=== PATIENT | female | born 1980 | race Caucasian/White ===

== ENCOUNTER 2016-07-23 01:05 | Emergency (ER) | payer SELFPAY ==
[2016-07-23] MEDS ORDERED: Phenergan 25 MG INJ IV ONE (01:15)
[2016-07-23] MEDS ORDERED: Sodium Chloride 0.9% 1000 ML 1,000 ML IV STA (01:15)
--- NOTE | 2016-07-23 01:21 | ERPHSYRPT ---
- History of Present Illness Time Seen by Provider: 07/23/16 01:05 Source: patient Exam Limitations: no limitations Physician History: REPORTEDLY PT WAS FOUND LYING DOWN IN THE ROAD TONIGHT. PT C/O NECK PAIN, INCONTINENCE, SHORTNESS OF AIR AND VOMITING; DENIES CHEST PAIN, DIARRHEA, DYSURIA. Allergies/Adverse Reactions: coconut Allergy (Verified 07/23/16 01:29) - Review of Systems Constitutional: No Fever Respiratory: Dyspnea Cardiac: No Chest Pain Abdominal/Gastrointestinal: Vomiting, No Abdominal Pain Genitourinary Symptoms: Incontinence Musculoskeletal: Neck Pain Neurological: Other (ALTERED MENTAL STATUS) All Other Systems: Reviewed and Negative - Nursing Vital Signs Nursing Vital Signs: Initial Vital Signs Temperature 97 F Pulse Rate 92 Respiratory Rate 20 Blood Pressure [] 112/72 Pain Intensity 0 - Physical Exam General Appearance: alert Eye Exam: PERRL/EOMI, eyes nml inspection Ears, Nose, Throat Exam: moist mucous membranes, TM abnormal (L) (LEFT TM ERYTHEMATOUS), pharyngeal erythema Neck Exam: normal inspection Respiratory Exam: lungs clear Cardiovascular Exam: normal heart sounds Gastrointestinal/Abdomen Exam: soft, normal bowel sounds Back Exam: normal range of motion Extremity Exam: normal inspection, No pedal edema Neurologic Exam: alert, cooperative, sensation nml, No motor deficits Skin Exam: warm, dry - Course Nursing assessment & vital signs reviewed: Yes EKG Interpreted by Me: RATE (92), Sinus Rhythm, NORMAL AXIS, NORMAL INTERVALS - Radiology Exams Chest X-ray Interpretation: Interpreted by me, No Pneumonia - CT Exams Cervical Spine CT Interpretation: Tele-radiologist Report (NEGATIVE FOR FX OF THE CERVICAL SPINE. CERVICAL SPONDYLITIC CHANGES.) Ordered Tests: Active Orders 24 hr Category Date Time Status EKG-ER Only STAT Care 07/23/16 01:17 Active CERVICAL SPINE WO CONTRAST [CT] Stat Exams 07/23/16 02:03 Taken CHEST 1 VIEW (PORTABLE) Stat Exams 07/23/16 01:17 Taken ACETAMINOPHEN Stat Lab 07/23/16 01:30 Completed AMYLASE Stat Lab 07/23/16 01:30 Completed CBC W DIFF Stat Lab 07/23/16 01:30 Completed CMP Stat Lab 07/23/16 01:30 Completed Ethyl Alcohol,Urine Stat Lab 07/23/16 01:15 Completed HCG QUALITATIVE,SERUM Stat Lab 07/23/16 01:30 Completed LIPASE Stat Lab 07/23/16 01:30 Completed MAG [MAGNESIUM] Stat Lab 07/23/16 01:30 Completed SALICYLATE Stat Lab 07/23/16 01:30 Completed TROPONIN Stat Lab 07/23/16 01:30 Completed UA Stat Lab 07/23/16 01:15 Completed Urine Triage Profile Stat Lab 07/23/16 01:15 Completed VALPROIC ACID (DEPAKOTE) Stat Lab 07/23/16 01:30 Completed Medication Summary Generic Name Dose Route Start Last Admin Trade Name Florencio PRN Reason Stop Dose Admin Divalproex Sodium 500 mg 07/23/16 03:00 Depakote Extended Release 250 Mg PO 08/22/16 02:59 1XONLY ABDOUL Potassium Chloride 40 meq 07/23/16 10:00 Potassium Chl 40 Meq/30 Ml Oral Solution PO 08/22/16 09:59 DAILY ABDOUL Discontinued Medications Generic Name Dose Route Start Last Admin Trade Name Florencio PRN Reason Stop Dose Admin Sodium Chloride 1,000 mls @ 999 mls/hr 07/23/16 01:15 07/23/16 01:36 Sodium Chloride 0.9% 1000 Ml IV 07/23/16 02:15 999 mls/hr .Q1H1M STA Administration Sodium Chloride Confirm 07/23/16 01:30 Sodium Chloride 0.9% 1000 Ml Administered 07/23/16 01:31 Dose 1,000 mls @ ud .ROUTE .STK-MED ONE Promethazine HCl 12.5 mg 07/23/16 01:15 07/23/16 01:36 Phenergan 25 Mg Inj IV 07/23/16 01:16 12.5 mg STAT ONE Administration Promethazine HCl Confirm 07/23/16 01:30 Phenergan 25 Mg Inj Administered 07/23/16 01:31 Dose 25 mg .ROUTE .STK-MED ONE Lab/Rad Data: Laboratory Result Diagrams 07/23/16 01:30 07/23/16 01:30 Laboratory Results 07/23/16 07/23/16 07/23/16 Range/Units 01:30 01:30 01:30 WBC (4.0-10.5) K/mm3 RBC (4.1-5.4) M/mm3 Hgb (12.0-16.0) gm/dl Hct (35-47) % MCV (78-100) fl MCH (26-32) pg MCHC (32-36) g/dl RDW (11.5-14.0) % Plt Count (150-450) K/mm3 MPV (6-9.5) fl Gran % (36.0-66.0) % Lymphocytes % (24.0-44.0) % Monocytes % (0.0-12.0) % Eosinophils % (0.00-5.0) % Basophils % (0.0-0.4) % Basophils # (0-0.4) Sodium (136-145) mEq/L Potassium (3.5-5.1) mEq/L Chloride (98-107) mEq/L Carbon Dioxide (21-32) mEq/L Anion Gap (5-15) MEQ/L BUN (9-20) mg/dL Creatinine (0.55-1.30) mg/dl Estimated GFR ML/MIN Glucose (70-110) MG/DL Calcium (8.5-10.1) mg/dL Magnesium 2.0 (1.8-2.4) mg/dL Total Bilirubin (0.2-1.0) mg/dL AST (15-37) U/L ALT (12-78) U/L Alkaline Phosphatase (46-116) U/L Troponin I < 0.017 (0.000-0.056) ng/ml Serum Total Protein (6.4-8.2) gm/dL Albumin (3.4-5.0) g/dL Amylase 36 (25-115) U/L Lipase 110 (73-393) U/L Serum , Qual (Negative) Ur Collection Type Urine Color (YELLOW) Urine Appearance (CLEAR) Urine pH (5-6) Ur Specific [place] (1.005-1.025) Urine Protein (Negative) Urine Glucose (UA) (NEGATIVE) mg/dL Urine Ketones (NEGATIVE) Urine Nitrite (NEGATIVE) Urine Bilirubin (NEGATIVE) Urine Urobilinogen (0-1) mg/dL Urine WBC (Auto) (NEGATIVE) Urine RBC (Auto) (0-5) Geo/ul Salicylates (2.8-20.0) mg/dl Urine Opiates Level (NEGATIVE) Ur Methadone (NEGATIVE) Acetaminophen (10-30) ug/ml Urine Barbiturates (NEGATIVE) Valproic Acid 13.3 L (50-100) UG/ML Ur Phencyclidine (PCP) (NEGATIVE) Urine Amphetamine (NEGATIVE) U Benzodiazepine Level (NEGATIVE) Urine Cocaine (NEGATIVE) Urine Marijuana (THC) (NEGATIVE) Urine Ethyl Alcohol (0.00-20) mg/dl Specimen Received 07/23/16 07/23/16 07/23/16 Range/Units 01:30 01:30 01:30 WBC 9.9 (4.0-10.5) K/mm3 RBC 4.24 (4.1-5.4) M/mm3 Hgb 13.4 (12.0-16.0) gm/dl Hct 41.6 (35-47) % MCV 98.1 (78-100) fl MCH 31.6 (26-32) pg MCHC 32.2 (32-36) g/dl RDW 14.7 H (11.5-14.0) % Plt Count 302 (150-450) K/mm3 MPV 8.5 (6-9.5) fl Gran % 53.5 (36.0-66.0) % Lymphocytes % 35.9 (24.0-44.0) % Monocytes % 7.2 (0.0-12.0) % Eosinophils % 3.0 (0.00-5.0) % Basophils % 0.4 (0.0-0.4) % Basophils # 0.04 (0-0.4) Sodium 144 (136-145) mEq/L Potassium 3.4 L (3.5-5.1) mEq/L Chloride 110 H (98-107) mEq/L Carbon Dioxide 24.4 (21-32) mEq/L Anion Gap 12.9 (5-15) MEQ/L BUN 12 (9-20) mg/dL Creatinine 0.81 (0.55-1.30) mg/dl Estimated GFR > 60 ML/MIN Glucose 78 (70-110) MG/DL Calcium 8.2 L (8.5-10.1) mg/dL Magnesium (1.8-2.4) mg/dL Total Bilirubin 0.2 (0.2-1.0) mg/dL AST 18 (15-37) U/L ALT 13 (12-78) U/L Alkaline Phosphatase 68 (46-116) U/L Troponin I (0.000-0.056) ng/ml Serum Total Protein 6.8 (6.4-8.2) gm/dL Albumin 3.3 L (3.4-5.0) g/dL Amylase (25-115) U/L Lipase (73-393) U/L Serum , Qual NEGATIVE (Negative) Ur Collection Type Urine Color (YELLOW) Urine Appearance (CLEAR) Urine pH (5-6) Ur Specific [place] (1.005-1.025) Urine Protein (Negative) Urine Glucose (UA) (NEGATIVE) mg/dL Urine Ketones (NEGATIVE) Urine Nitrite (NEGATIVE) Urine Bilirubin (NEGATIVE) Urine Urobilinogen (0-1) mg/dL Urine WBC (Auto) (NEGATIVE) Urine RBC (Auto) (0-5) Geo/ul Salicylates 4.4 (2.8-20.0) mg/dl Urine Opiates Level (NEGATIVE) Ur Methadone (NEGATIVE) Acetaminophen < 2.0 L (10-30) ug/ml Urine Barbiturates (NEGATIVE) Valproic Acid (50-100) UG/ML Ur Phencyclidine (PCP) (NEGATIVE) Urine Amphetamine (NEGATIVE) U Benzodiazepine Level (NEGATIVE) Urine Cocaine (NEGATIVE) Urine Marijuana (THC) (NEGATIVE) Urine Ethyl Alcohol (0.00-20) mg/dl Specimen Received 07/23/16 07/23/16 07/23/16 Range/Units 01:15 01:15 01:15 WBC (4.0-10.5) K/mm3 RBC (4.1-5.4) M/mm3 Hgb (12.0-16.0) gm/dl Hct (35-47) % MCV (78-100) fl MCH (26-32) pg MCHC (32-36) g/dl RDW (11.5-14.0) % Plt Count (150-450) K/mm3 MPV (6-9.5) fl Gran % (36.0-66.0) % Lymphocytes % (24.0-44.0) % Monocytes % (0.0-12.0) % Eosinophils % (0.00-5.0) % Basophils % (0.0-0.4) % Basophils # (0-0.4) Sodium (136-145) mEq/L Potassium (3.5-5.1) mEq/L Chloride (98-107) mEq/L Carbon Dioxide (21-32) mEq/L Anion Gap (5-15) MEQ/L BUN (9-20) mg/dL Creatinine (0.55-1.30) mg/dl Estimated GFR ML/MIN Glucose (70-110) MG/DL Calcium (8.5-10.1) mg/dL Magnesium (1.8-2.4) mg/dL Total Bilirubin (0.2-1.0) mg/dL AST (15-37) U/L ALT (12-78) U/L Alkaline Phosphatase (46-116) U/L Troponin I (0.000-0.056) ng/ml Serum Total Protein (6.4-8.2) gm/dL Albumin (3.4-5.0) g/dL Amylase (25-115) U/L Lipase (73-393) U/L Serum , Qual (Negative) Ur Collection Type CLEAN CATCH Urine Color LT.YELLOW (YELLOW) Urine Appearance CLEAR (CLEAR) Urine pH 5.5 5.5 (5-6) Ur Specific [place] <=1.005 (1.005-1.025) Urine Protein NEGATIVE (Negative) Urine Glucose (UA) NEGATIVE (NEGATIVE) mg/dL Urine Ketones NEGATIVE (NEGATIVE) Urine Nitrite NEGATIVE (NEGATIVE) Urine Bilirubin NEGATIVE (NEGATIVE) Urine Urobilinogen 0.2 (0-1) mg/dL Urine WBC (Auto) NEGATIVE (NEGATIVE) Urine RBC (Auto) NEGATIVE (0-5) Geo/ul Salicylates (2.8-20.0) mg/dl Urine Opiates Level NEG. (NEGATIVE) Ur Methadone NEG. (NEGATIVE) Acetaminophen (10-30) ug/ml Urine Barbiturates NEG. (NEGATIVE) Valproic Acid (50-100) UG/ML Ur Phencyclidine (PCP) NEG. (NEGATIVE) Urine Amphetamine NEG. (NEGATIVE) U Benzodiazepine Level NEG. (NEGATIVE) Urine Cocaine NEG. (NEGATIVE) Urine Marijuana (THC) NEG. (NEGATIVE) Urine Ethyl Alcohol 173 H (0.00-20) mg/dl Specimen Received 07/23/16:0115 - Departure Time of Disposition: 03:00 Departure Disposition: Home Clinical Impression: ALCOHOL INTOXICATION, HYPOKALEMIA, AMS, SEIZURE DISORDER Condition: Fair Critical Care Time: No Referrals: ISMAEL LIM III [Primary Care Provider] - Instructions: Alcohol Abuse and Alcoholism Additional Instructions: FOLLOW UP WITH PRIVATE DOCTOR TOMORROW. AVOID ALCOHOLIC BEVERAGES.
[2016-07-23] MEDS ORDERED: Phenergan 25 MG INJ ONE (01:30)
[2016-07-23] MEDS ORDERED: Sodium Chloride 0.9% 1000 ML 1,000 ML ONE (01:30)
[2016-07-23 01:32] LABS: BASOPHIL % 0.4 % (0.0-0.4); Granulocytes % 53.5 % (36.0-66.0); Lymphocytes % 35.9 % (24.0-44.0); Mean Cell Volume 98.1 fl (78-100); Mean Corpuscular Hemoglobin 31.6 pg (26-32); Mean Platelet Volume 8.5 fl (6-9.5); Monocytes % 7.2 % (0.0-12.0); Platelet Count 302 K/mm3 (150-450); Red Blood Count 4.24 M/mm3 (4.1-5.4); Red Cell Distribution Width 14.7 % (11.5-14.0); White Blood Count 9.9 K/mm3 (4.0-10.5)
[2016-07-23 01:45] LABS: COMPLETE URINE MICROSCOPIC? NO; Collection Type CLEAN CATCH; Ph 5.5 (5-6)
[2016-07-23 01:59] LABS: ALBUMIN 3.3 g/dL (3.4-5.0); ALKALINE PHOSPHATASE 68 U/L (46-116); ANION GAP 12.9 MEQ/L (5-15); BILIRUBIN,TOTAL 0.2 mg/dL (0.2-1.0); BLOOD UREA NITROGEN 12 mg/dL (9-20); CHLORIDE 110 mEq/L (98-107); Carbon Dioxide 24.4 mEq/L (21-32); Glucose 78 MG/DL (70-110); LIPASE 110 U/L (73-393); Potassium 3.4 mEq/L (3.5-5.1); SGOT/AST 18 U/L (15-37); SGPT/ALT 13 U/L (12-78); SODIUM 144 mEq/L (136-145); Total Protein 6.8 gm/dL (6.4-8.2)
[2016-07-23 02:00] LABS: ACETAMINOPHEN < 2.0 ug/ml (10-30); TROPONIN < 0.017 ng/ml (0.000-0.056)
[2016-07-23 02:36] VITALS: BP 112/72; PULSE 92; O2SAT 91
[2016-07-23] MEDS ORDERED: Depakote EXTENDED RELEASE 250 MG PO SCH (03:00)
[2016-07-23] MEDS ORDERED: POTASSIUM CHL 40 MEQ/30 ML ORAL SOLUTION ONE (03:11)
--- NOTE | 2016-07-23 09:44 | XRAY ---
Indication: Acute mental status change. Comparison: None Portable chest demonstrates subtle right base infiltrate versus atelectasis and left base fibrosis/scarring. Remaining heart and lungs normal. Bony thorax intact. Comment: Right base opacity not reported on preliminary interpretation by the ER clinician. I gave telephone report to Dr. Falcon in the ER at 0939 hrs on July 23, 2016.
--- NOTE | 2016-07-23 09:48 | XRAY ---
Indication: Neck pain. No known injury. Multiple contiguous axial images obtained through the cervical spine. Sagittal and coronal reformatted images obtained. Comparison: None Study minimally degraded by motion artifact. No acute fracture, suspicious bony lesions, or spinal canal stenosis. Minimal C5-T1 degenerative endplate spurring. Sagittal and coronal reformatted images demonstrates slight lordotic reversal, positional versus paraspinal muscular spasm. Disc spaces maintained. No acute compression fracture, subluxation, or jumped facet. Normal appearing craniocervical junction. Visualized noncontrasted soft tissues including base of the brain and lung apices are unremarkable. Mild mucosal thickening of the visualized right maxillary sinus. Impression: 1. Slight lordotic reversal, positional versus paraspinal spasm. Negative for acute fracture/subluxation. 2. Minimal C5-T1 degenerative changes. 3. Incidental right maxillary sinus disease. Comment: Preliminary interpretation was made by [facility]. No discrepancy. CT DI 137.35
[2016-07-23] MEDS ORDERED: POTASSIUM CHL 40 MEQ/30 ML ORAL SOLUTION PO SCH (10:00)
== END 2016-07-23 03:32 | disposition home or self-care (01) ==
LOC: ED 01:05
DX: F10.129 Alcohol abuse with intoxication, unspecified (principal); E87.6 Hypokalemia; R41.82 Altered mental status, unspecified; G40.909 Epilepsy, unspecified, not intractable, without status epilepticus
CPT/HCPCS: 36415; 71010; 72125; 80053; 80307; 80320; 80339; 81002; 82150; 83690; 83735; 83986; 84484; 84703; 85025; 93005; 96360; 96374; 99284; G0481; J2550; A9270-GY

== ENCOUNTER 2016-09-21 18:27 | Emergency (ER) | payer OTHER ==
[2016-09-21] MEDS ORDERED: Hydromorphone 1 mg/ml Ampule IM ONE (19:24)
[2016-09-21] MEDS ORDERED: Phenergan 25 MG INJ IM ONE (19:25)
--- NOTE | 2016-09-21 19:31 | ERPHSYRPT ---
- History of Present Illness Time Seen by Provider: 09/21/16 19:25 Source: patient Exam Limitations: clinical condition Patient Subjective Stated Complaint: PT STATES SHE HAS GOUT IN BOTH FEET AND ARTHRITIS IN HER HIPS. STATES THE PAIN HAS BEEN CONSTANT FOR ONE WEEK BUT BECAME UNBEARABLE TODAY. Triage Nursing Assessment: PT IS AOX3, AMBULATORY TO COT WITH SLOW BUT STEADY GAIT, RESPS ARE EASY AND NON LABORED, SKIN IS PWD. PEDAL PULSES ARE PRESENT AND STRONG BILAT. 1+ PITTING EDEMA NOTED TO BILATERAL LOWER EXTREMITIES. Physician History: PATIENT WITH HISTORY OF BIPOLAR DISORDER,GOUTY AND OSTEOARTHRITIS FOR YEARS COMPLAINS OF PAIN IN BOTH FEET, ASSOCIATED WITH SWELLLING. ALSO HAS CHROINC HIP PAIN WORSE UPON WEIGTH BEARING. DENIES HISTORY OF TRAUMA OR INJURY. HAS INCREASING PAIN OVER THE PAST WEEK. Method of Injury: other (DENIES INJURY) Occurred: last week Quality: constant Severity of Pain-Max: moderate Severity of Pain-Current: moderate Lower Extremities Pain: foot: bilateral, ankle: bilateral Modifying Factors: Improves With: other (WEIGHT BEARING) Allergies/Adverse Reactions: coconut Allergy (Verified 07/23/16 01:29) NSAIDS (Non-Steroidal Anti-Inflamma Allergy (Verified 09/21/16 18:45) Home Medications: Alprazolam [Xanax] 1 tab PO BID 07/23/16 [History] Divalproex Sodium [Depakote ER] 2,000 mg PO HS 07/23/16 [History] Fluoxetine HCl [Prozac] 1 cap PO DAILY 07/23/16 [History] Prazosin HCl 2 mg PO HS 07/23/16 [History] Risperidone [Risperdal] 1 tab BID 07/23/16 [History] Hx Tetanus, Diphtheria Vaccination/Date Given: Yes Hx Influenza Vaccination/Date Given: No Hx Pneumococcal Vaccination/Date Given: No Immunizations Up to Date: Yes - Review of Systems Constitutional: No Fever, No Chills Eyes: No Symptoms Ears, Nose, & Throat: No Symptoms Respiratory: No Symptoms, No Cough, No Dyspnea Cardiac: No Symptoms, No Chest Pain, No Edema, No Syncope Abdominal/Gastrointestinal: No Symptoms, No Abdominal Pain, No Nausea, No Vomiting, No Diarrhea Genitourinary Symptoms: No Symptoms, No Dysuria Musculoskeletal: Joint Pain, Joint Swelling, No Back Pain, No Neck Pain Skin: No Rash Neurological: No Dizziness, No Focal Weakness, No Sensory Changes Psychological: No Symptoms Endocrine: No Symptoms All Other Systems: Reviewed and Negative - Past Medical History Pertinent Past Medical History: Yes Neurological History: Seizures Musculoskeletal History: Arthritis, Other Psycho-Social History: Anxiety, Bipolar, Depression, Other Other Medical History: GOUT, PTSD, SCHIZOAFFECTIVE, BORDERLINE PERSONALITY DISORDER ,DELUSIONS -has a couselor at [facility] - Past Surgical History Past Surgical History: Yes Musculoskeletal: Other Other Surgical History: REPAIR TO MENISCUS 2016 - Social History Smoking Status: Current every day smoker Exposure to second hand smoke: No Drug Use: none Patient Lives Alone: No - Female History Hx Last Menstrual Period: 09/14/16 - Nursing Vital Signs Nursing Vital Signs: Initial Vital Signs Temperature 98.2 F Temperature Source Oral Pulse Rate 86 Respiratory Rate 20 Blood Pressure [Right Arm] 102/61 Pain Intensity [Hip] 10 Pain Intensity 6 - Physical Exam General Appearance: alert Eyes, Ears, Nose, Throat Exam: moist mucous membranes Neck Exam: non-tender, supple Cardiovascular/Respiratory Exam: chest non-tender, normal breath sounds, regular rate/rhythm, no respiratory distress Gastrointestinal/Abdominal Exam: non-tender, guarding Back Exam: normal inspection, No vertebral tenderness Hips Exam: bilateral: normal range of motion (WITH PAIN RIGH HIP, NONTENDER RIGHT GREATER TROCHANTER) Legs Exam: bilateral leg: swelling (THERE IS 2+ PITTING ANKLES TO KNEES) Ankle Exam: bilateral ankle: normal range of motion, soft tissue tenderness, swelling (2+ EDEMA, NO JOINT LAXITY UPON VARUS/VALGUS STRESS), other (PEDIS PULSES 2+) Foot Exam: bilateral foot: pain, soft tissue tenderness, swelling (2+PITTING EDEMA) Neuro/Tendon Exam: normal sensation, normal motor functions Mental Status Exam: alert, oriented x 3, cooperative Skin Exam: normal color, warm, dry SpO2 Interpretation: normal SpO2: 94 Oxygen Delivery: Room Air Ordered Tests: Medication Summary Discontinued Medications Generic Name Dose Route Start Last Admin Trade Name Freq PRN Reason Stop Dose Admin Hydromorphone HCl 1 mg 09/21/16 19:24 09/21/16 19:41 Hydromorphone 1 Mg/Ml Ampule IM 09/21/16 19:25 1 mg STAT ONE Administration Hydromorphone HCl Confirm 09/21/16 19:36 Hydromorphone 1 Mg/Ml Ampule Administered 09/21/16 19:37 Dose 1 mg .ROUTE .STK-MED ONE Promethazine HCl 25 mg 09/21/16 19:25 09/21/16 19:41 Phenergan 25 Mg Inj IM 09/21/16 19:26 25 mg STAT ONE Administration Promethazine HCl Confirm 09/21/16 19:35 Phenergan 25 Mg Inj Administered 09/21/16 19:36 Dose 25 mg .ROUTE .STK-MED ONE - Progress Progress: pain not gone completely Progress Note: 09/21/16 19:40 PATIENT GIVEN DILAUDID 1MG/PHENERGAN 25MG IM Counseled pt/family regarding: diagnosis, need for follow-up - Departure Time of Disposition: 20:00 Departure Disposition: Home Clinical Impression: BILATERAL FEET GOUTY ARTHRITIS, BILATERAL LOWER EXTREMITY DEPENDENT PREETI Condition: Stable Critical Care Time: No Referrals: ISMAEL LIM III [Primary Care Provider] - Instructions: Chronic Pain -- Adult Additional Instructions: FOLLOWUP WITH A FAMILY PHYSICIAN IN 1 WEEK. TYLENOL #3 EVERY 4 HOURS FOR PAIN NEEDED. LASIX 40MG DAILY FOR 5 DAYS FOR TREATMENT OF LEG AND FOOT SWELLING. KLOR CON 20MEQ DAILY FOR 5 DAYS. WEIGH YOURSELF DAILY. Prescriptions: Codeine Phosphate/APAP #3 [Tylenol #3 Tablet] 1 tab PO Q4HPRN PRN #12 tablet PRN Reason: Pain Furosemide 40 mg [Lasix 40 MG] 40 mg PO DAILY #5 tablet Potassium Chloride 20 Meq [Klor-Con 20 MEQ] 20 meq PO DAILY #5 tab
[2016-09-21] MEDS ORDERED: Phenergan 25 MG INJ ONE (19:35)
[2016-09-21] MEDS ORDERED: Hydromorphone 1 mg/ml Ampule ONE (19:36)
[2016-09-21 20:21] VITALS: BP 109/72; PULSE 80; O2SAT 96
== END 2016-09-21 20:21 | disposition home or self-care (01) ==
LOC: ED 18:27
DX: M10.9 Gout, unspecified (principal); R60.0 Localized edema; M19.90 Unspecified osteoarthritis, unspecified site
CPT/HCPCS: 96372; 99284; J1170; J2550

== ENCOUNTER 2020-10-29 16:34 | Emergency (ER) | payer OTHER ==
--- NOTE | 2020-10-29 17:34 | ERPHSYRPT ---
- History of Present Illness Time Seen by Provider: 10/29/20 16:55 Source: patient Exam Limitations: no limitations Patient Subjective Stated Complaint: Pt broke her leg on Tuesday and went to [facility] and then went to [facility], pt continues to have severe pain and having high anxiety due to the pain Triage Nursing Assessment: Pt was brought to the ER by her girlfriend, rose marie amezcua, rates pain 10/10, wearing a walking boot from [employer], pulses normal, states that she hasn't gotten out of bed due to the pain and anxiety, goes to a pain clinic and they are to deal with her meds tomorrow, reports not going home with any pain medication Physician History: Is a 40-year-old female who reports that she fell Tuesday at the [facility] during her left leg. She was seen at [facility] had x-rays and was told there was no fracture. She then went to [facility] and had x-rays done which show the leg to be broken in 2 places and they are working on getting her a wheelchair. She mainly complains of anxiety we did obtain the records from [facility] and they do indeed indicate no fracture. We were unable to obtain the records from [facility]. Method of Injury: fell Occurred: days ago (4) Quality: constant, throbbing Severity of Pain-Max: severe Severity of Pain-Current: severe Lower Extremities Pain: leg: left (Leg is in a walking boot placed by [facility] she has not been removed from that boot.) Modifying Factors: Improves With: immobilization, movement Associated Symptoms: unable to bear weight Allergies/Adverse Reactions: coconut Allergy (Verified 10/29/20 16:52) NSAIDS (Non-Steroidal Anti-Inflamma Allergy (Verified 10/29/20 16:52) Home Medications: Prazosin HCl 2 mg PO HS 07/23/16 [History] Risperidone [Risperdal] 1 tab BID 07/23/16 [History] Buprenorphine HCl [Belbuca] 900 mcg BC Q12H 10/29/20 [History] Doxepin HCl 3 mg PO HS 10/29/20 [History] Hydrocodone/Acetaminophen [Hydrocodone-Acetamin 10-325 mg] 1 tablet PO Q6H PRN 10/29/20 [History] Lidocaine/Prilocaine [Lidocaine-Prilocaine Cream] 1 gm TOP DAILY 10/29/20 [History] Prazosin HCl 5 mg PO DAILY 10/29/20 [History] hydrOXYzine HCL [Hydroxyzine HCl] 10 mg PO TID 10/29/20 [History] Hx Tetanus, Diphtheria Vaccination/Date Given: Yes Hx Influenza Vaccination/Date Given: No Hx Pneumococcal Vaccination/Date Given: No Travel Risk - International Travel Have you traveled outside of the country in past 3 weeks: No - Coronavirus Screening Are you exhibiting any of the following symptoms?: No Close contact with a COVID-19 positive Pt in past 14-21 Days: No - Vaccine Status Have you recieved a Covid-19 vaccination: No - Review of Systems Constitutional: No Fever, No Chills Eyes: No Symptoms Ears, Nose, & Throat: No Symptoms Respiratory: No Cough, No Dyspnea Cardiac: No Chest Pain, No Edema, No Syncope Abdominal/Gastrointestinal: No Abdominal Pain, No Nausea, No Vomiting, No Diarrhea Genitourinary Symptoms: No Dysuria Musculoskeletal: Fall, No Back Pain, No Neck Pain Skin: No Rash Neurological: No Dizziness, No Focal Weakness, No Sensory Changes Psychological: No Symptoms Endocrine: No Symptoms All Other Systems: Reviewed and Negative - Past Medical History Pertinent Past Medical History: Yes Neurological History: Seizures Musculoskeletal History: Arthritis, Fractures, Other Psycho-Social History: Anxiety, Bipolar, Depression, Other Other Medical History: GOUT, PTSD, SCHIZOAFFECTIVE, BORDERLINE PERSONALITY DISORDER ,DELUSIONS -has a couselor at [facility] - Past Surgical History Past Surgical History: Yes Musculoskeletal: Other Other Surgical History: REPAIR TO [facility] 2016 - Social History Smoking Status: Current every day smoker Exposure to second hand smoke: Yes Drug Use: none Patient Lives Alone: Yes - Female History Hx Now: No - Nursing Vital Signs Nursing Vital Signs: Initial Vital Signs Temperature 97.2 F 10/29/20 16:45 Pulse Rate 80 10/29/20 16:45 Blood Pressure 138/78 10/29/20 16:45 O2 Sat by Pulse Oximetry 95 10/29/20 16:45 Pain Scale Pain Intensity 10 - Physical Exam General Appearance: mild distress, alert Eyes, Ears, Nose, Throat Exam: moist mucous membranes Neck Exam: non-tender, supple Cardiovascular/Respiratory Exam: chest non-tender, normal breath sounds, regular rate/rhythm, no respiratory distress Gastrointestinal/Abdominal Exam: non-tender, guarding Back Exam: normal inspection, No vertebral tenderness Hips Exam: bilateral: non-tender, normal inspection, normal range of motion Legs Exam: left leg: bone tenderness, limited range of motion, pain, swelling Neuro/Tendon Exam: normal sensation, normal motor functions Mental Status Exam: alert, oriented x 3, cooperative Skin Exam: normal color, warm, dry SpO2: 95 - Course Nursing assessment & vital signs reviewed: Yes - Progress Progress: unchanged - Departure Departure Disposition: Home Clinical Impression: Leg pain, left, Anxiety Condition: Stable Critical Care Time: No Referrals: DOCTOR,NO FAMILY [Primary Care Provider] - Instructions: Anxiety, Adult (DC) Prescriptions: Lorazepam 1 mg [Ativan 1 MG] 1 mg PO Q12H PRN 3 Days #6 tablet PRN Reason: Anxiety
[2020-10-29 18:35] VITALS: BP 103/81; PULSE 98; O2SAT 85
== END 2020-10-29 19:12 | disposition home or self-care (01) ==
LOC: ED 16:34
DX: M79.605 Pain in left leg (principal); W18.30XA Fall on same level, unspecified, initial encounter; Y93.89 Activity, other specified; Y92.828 Other wilderness area as the place of occurrence of the external cause; F41.9 Anxiety disorder, unspecified
CPT/HCPCS: 99283; U0003

== ENCOUNTER 2021-08-18 23:59 | Emergency (ER) | payer MEDICARE ==
--- NOTE | 2021-08-19 00:12 | ERPHSYRPT ---
- History of Present Illness Time Seen by Provider: 08/19/21 00:12 Source: patient, EMS Exam Limitations: clinical condition Physician History: This is an obese 41-year-old white female who has a history of seizure disorders and presents with 3 episodes of seizures today. She states these are stress- induced seizures and she has been very stressed recently. She did not hit her head or have any type of head injury. Patient states that her neurologist, Dr. Baldwin, is changing up her medications. This has been going on in the last week. She does not recall the name of the medication she is now taking. She is supposed to be taking Ativan twice a day and did not take her p.m. dose yet. Patient was brought into the emergency department by EMS service. Patient has a history of seizure disorder, anxiety, depression, arthritis, borderline personality disorder, bipolar disorder, schizoaffective disorder and PTSD. Patient did not soil herself. Patient does not have chest pain. She does not have shortness of breath. She has no abdominal pain. Timing/Duration: today Severity: moderate Character of Deficits: none Deficits: no difficulties Baseline/Normal Cognition: alert oriented x 3 Current Cognition: alert oriented x 3 Baseline Gait: walks w/o assistance Associated Symptoms: headache Allergies/Adverse Reactions: coconut Allergy (Verified 08/19/21 00:03) NSAIDS (Non-Steroidal Anti-Inflamma Allergy (Verified 08/19/21 00:03) Home Medications: Buprenorphine HCl [Belbuca] 900 mcg BC Q12H 10/29/20 [History] Doxepin HCl 1 tab PO HS 08/19/21 [History] Gabapentin [Neurontin] 1 tab PO BID 08/19/21 [History] Hydrocodone/Acetaminophen [Hydrocodone-Acetamin 10-325 mg] 1 tab PO Q4-6HPRN PRN 08/19/21 [History] Omeprazole 1 cap PO BID 08/19/21 [History] Prazosin HCl 1 cap PO DAILY 08/19/21 [History] Tiotropium [place] [Spiriva Respimat] 2 puff PO BID 08/19/21 [History] Topiramate 50 mg PO DAILY 08/19/21 [History] Topiramate 100 mg [Topamax 100 MG] 1 cap PO HS 08/19/21 [History] Hx Tetanus, Diphtheria Vaccination/Date Given: Yes Hx Influenza Vaccination/Date Given: No Hx Pneumococcal Vaccination/Date Given: No Travel Risk - International Travel Have you traveled outside of the country in past 3 weeks: No - Coronavirus Screening Are you exhibiting any of the following symptoms?: No Close contact with a COVID-19 positive Pt in past 14-21 Days: No - Vaccine Status Have you recieved a Covid-19 vaccination: No - Review of Systems Constitutional: No Symptoms Eyes: No Symptoms Ears, Nose, & Throat: No Symptoms Respiratory: No Symptoms Cardiac: No Symptoms Abdominal/Gastrointestinal: No Symptoms Genitourinary Symptoms: No Symptoms Musculoskeletal: No Symptoms Skin: No Symptoms Neurological: Headache, Seizure Psychological: No Symptoms Endocrine: No Symptoms Hematologic/Lymphatic: No Symptoms Immunological/Allergic: No Symptoms All Other Systems: Reviewed and Negative - Past Medical History Pertinent Past Medical History: Yes Neurological History: Seizures Musculoskeletal History: Arthritis, Fractures, Other Psycho-Social History: Anxiety, Bipolar, Depression, Other Other Medical History: GOUT, PTSD, SCHIZOAFFECTIVE, BORDERLINE PERSONALITY DISORDER ,DELUSIONS -has a couselor at [facility] - Past Surgical History Past Surgical History: Yes Musculoskeletal: Other Other Surgical History: REPAIR TO MENISCUS 2016 - Social History Smoking Status: Current every day smoker Exposure to second hand smoke: Yes Drug Use: none Patient Lives Alone: Yes - Nursing Vital Signs Nursing Vital Signs: Initial Vital Signs Pulse Rate 92 H 08/19/21 00:04 Respiratory Rate 20 08/19/21 00:04 Blood Pressure 115/69 08/19/21 00:04 O2 Sat by Pulse Oximetry 95 08/19/21 00:04 Pain Scale Pain Intensity 3 - [place] Coma Scale Best Eye Response ([place]): (4) open spontaneously Best Verbal Response ([place]): (5) oriented Best Motor Response (Trip): (6) obeys commands [place] Total: 15 - Physical Exam General Appearance: no apparent distress, alert, anxiety, obese Eye Exam: bilateral eye: normal inspection, PERRL, EOMI Ears, Nose, Throat Exam: normal ENT inspection, moist mucous membranes Neck Exam: normal inspection, non-tender, supple, full range of motion Respiratory: normal breath sounds, lungs clear, airway intact, No chest tenderness, No respiratory distress Cardiovascular: regular rate/rhythm, normal heart sounds, normal peripheral pulses Gastrointestinal: soft, normal bowel sounds, No tenderness Pelvic Exam: not done Rectal Exam: not done Back Exam: normal inspection, normal range of motion, No CVA tenderness, No vertebral tenderness Extremity Exam: normal inspection, normal range of motion, pelvis stable Mental Status: alert, oriented x 3, cooperative lawn care professional Exam: normal hearing, normal speech, PERRL, tongue midline Motor/Sensory: no motor deficit, no sensory deficit Skin Exam: normal color, warm, dry SpO2 Interpretation: normal O2 Delivery: Room Air - Course Nursing assessment & vital signs reviewed: Yes Ordered Tests: Active Orders 24 hr Category Date Time Status Clean Catch Urine Specimen STAT Care 08/19/21 00:14 Active IV Insertion STAT Care 08/19/21 00:14 Active Pulse Oximetry (ED) STAT Care 08/19/21 00:14 Active HEAD WITHOUT CONTRAST [CT] Stat Exams 08/19/21 00:14 Taken SHOULDER Stat Exams 08/19/21 00:00 Taken CBC W DIFF Stat Lab 08/19/21 00:28 Completed CMP Stat Lab 08/19/21 00:28 Completed UA W/RFX CULTURE Stat Lab 08/19/21 01:07 Completed Urine Triage Profile Stat Lab 08/19/21 01:00 Completed Medication Summary Discontinued Medications Generic Name Dose Route Start Last Admin Trade Name Freq PRN Reason Stop Dose Admin Lorazepam 1 mg 08/19/21 00:14 08/19/21 00:25 Lorazepam 2 Mg/1 Ml 2 Mg Vial IV 08/19/21 00:15 1 mg STAT ONE Administration Lorazepam Confirm 08/19/21 00:25 Lorazepam 2 Mg/1 Ml 2 Mg Vial Administered 08/19/21 00:26 Dose 2 mg .ROUTE .STK-MED ONE Ondansetron HCl 4 mg 08/19/21 01:00 08/19/21 01:01 Ondansetron Hcl 4 Mg/2 Ml Vial IV 08/19/21 01:01 4 mg STAT ONE Administration Ondansetron HCl Confirm 08/19/21 01:01 Ondansetron Hcl 4 Mg/2 Ml Vial Administered 08/19/21 01:02 Dose 4 mg .ROUTE .STK-MED ONE Lab/Rad Data: Laboratory Result Diagrams 08/19/21 00:28 08/19/21 00:28 Laboratory Results 08/19/21 08/19/21 08/19/21 Range/Units 01:07 01:00 00:28 WBC (4.0-10.5) x10^3/uL RBC (4.1-5.4) x10^6/uL Hgb (12.0-16.0) g/dL Hct (35-47) % MCV (78-100) fL MCH (26-32) pg MCHC (32-36) g/dL RDW (11.5-14.0) % Plt Count (150-450) x10^3/uL MPV (7.5-11.0) fL Gran % (36.0-66.0) % Immature Gran % (Auto) (0.00-0.1) % Nucleat RBC Rel Count (0.00-0.1) % Eos # (Auto) (0-0.5) x10^3/uL Immature Gran # (Auto) (0.00-0.01) x10^3u/L Absolute Lymphs (auto) (1.0-4.6) x10^3/uL Absolute Monos (auto) (0.0-1.3) x10^3/uL Absolute Nucleated RBC (0.00-0.01) x10^3u/L Lymphocytes % (24.0-44.0) % Monocytes % (0.0-12.0) % Eosinophils % (0.00-5.0) % Basophils % (0.0-0.4) % Absolute Granulocytes (1.4-6.9) x10^3/uL Basophils # (0-0.4) x10^3/uL Sodium 141 (137-145) mmol/L Potassium 4.6 (3.5-5.1) mmol/L Chloride 107 (98-107) mmol/L Carbon Dioxide 23 (22-30) mmol/L Anion Gap 16.1 H (5-15) MEQ/L BUN 7 (7-17) mg/dL Creatinine 0.54 (0.52-1.04) mg/dL Estimated GFR > 60.0 ML/MIN Glucose 101 (74-106) mg/dL Calcium 8.8 (8.4-10.2) mg/dL Total Bilirubin 0.80 (0.2-1.3) mg/dL AST 39 H (14-36) U/L ALT 15 (0-35) U/L Alkaline Phosphatase 65 (38-126) U/L Serum Total Protein 6.9 (6.3-8.2) g/dL Albumin 4.2 (3.5-5.0) g/dL Urinalys Dipstick Clnc MAIN LAB Urine Color YELLOW (YELLOW) Urine Appearance CLEAR (CLEAR) Urine pH 5.5 (5-6) Ur Specific [place] <=1.005 (1.005-1.025) POC Urine Protein Conf NEGATIVE (Negative) Urine Ketones NEGATIVE (NEGATIVE) Urine Nitrite NEGATIVE (NEGATIVE) Urine Bilirubin NEGATIVE (NEGATIVE) Urine Urobilinogen 0.2 (0-1) mg/dL Urine Leukocytes NEGATIVE (NEGATIVE) Urine WBC (Auto) NONE (0-5) /HPF Urine RBC (Auto) NONE (0-2) /HPF U Epithel Cells (Auto) RARE (FEW) /HPF Urine Bacteria (Auto) FEW (NEGATIVE) /HPF Urine RBC NEGATIVE (0-5) Geo/ul Ur Culture Indicated? NO Urine Glucose NEGATIVE (NEGATIVE) mg/dL Urine Opiates Level NEGATIVE (NEGATIVE) Ur Methadone NEGATIVE (NEGATIVE) Urine Barbiturates NEGATIVE (NEGATIVE) Ur Phencyclidine (PCP) NEGATIVE (NEGATIVE) Urine Amphetamine NEGATIVE (NEGATIVE) U Benzodiazepine Level NEGATIVE (NEGATIVE) Urine Cocaine NEGATIVE (NEGATIVE) Urine Marijuana (THC) NEGATIVE (NEGATIVE) 08/19/21 Range/Units 00:28 WBC 9.4 (4.0-10.5) x10^3/uL RBC 4.50 (4.1-5.4) x10^6/uL Hgb 14.7 (12.0-16.0) g/dL Hct 46.0 (35-47) % MCV 102.2 H (78-100) fL MCH 32.7 H (26-32) pg MCHC 32.0 (32-36) g/dL RDW 13.7 (11.5-14.0) % Plt Count 280 (150-450) x10^3/uL MPV 8.6 (7.5-11.0) fL Gran % 48.6 (36.0-66.0) % Immature Gran % (Auto) 0.4 H (0.00-0.1) % Nucleat RBC Rel Count 0.0 (0.00-0.1) % Eos # (Auto) 0.46 (0-0.5) x10^3/uL Immature Gran # (Auto) 0.04 H (0.00-0.01) x10^3u/L Absolute Lymphs (auto) 3.73 (1.0-4.6) x10^3/uL Absolute Monos (auto) 0.56 (0.0-1.3) x10^3/uL Absolute Nucleated RBC 0.00 (0.00-0.01) x10^3u/L Lymphocytes % 39.6 (24.0-44.0) % Monocytes % 5.9 (0.0-12.0) % Eosinophils % 4.9 (0.00-5.0) % Basophils % 0.6 (0.0-0.4) % Absolute Granulocytes 4.58 (1.4-6.9) x10^3/uL Basophils # 0.06 (0-0.4) x10^3/uL Sodium (137-145) mmol/L Potassium (3.5-5.1) mmol/L Chloride (98-107) mmol/L Carbon Dioxide (22-30) mmol/L Anion Gap (5-15) MEQ/L BUN (7-17) mg/dL Creatinine (0.52-1.04) mg/dL Estimated GFR ML/MIN Glucose (74-106) mg/dL Calcium (8.4-10.2) mg/dL Total Bilirubin (0.2-1.3) mg/dL AST (14-36) U/L ALT (0-35) U/L Alkaline Phosphatase (38-126) U/L Serum Total Protein (6.3-8.2) g/dL Albumin (3.5-5.0) g/dL Urinalys Dipstick Clnc Urine Color (YELLOW) Urine Appearance (CLEAR) Urine pH (5-6) Ur Specific [place] (1.005-1.025) POC Urine Protein Conf (Negative) Urine Ketones (NEGATIVE) Urine Nitrite (NEGATIVE) Urine Bilirubin (NEGATIVE) Urine Urobilinogen (0-1) mg/dL Urine Leukocytes (NEGATIVE) Urine WBC (Auto) (0-5) /HPF Urine RBC (Auto) (0-2) /HPF U Epithel Cells (Auto) (FEW) /HPF Urine Bacteria (Auto) (NEGATIVE) /HPF Urine RBC (0-5) Geo/ul Ur Culture Indicated? Urine Glucose (NEGATIVE) mg/dL Urine Opiates Level (NEGATIVE) Ur Methadone (NEGATIVE) Urine Barbiturates (NEGATIVE) Ur Phencyclidine (PCP) (NEGATIVE) Urine Amphetamine (NEGATIVE) U Benzodiazepine Level (NEGATIVE) Urine Cocaine (NEGATIVE) Urine Marijuana (THC) (NEGATIVE) - Progress Progress: improved Progress Note: 08/19/21 03:38 X-ray left shoulder shows no acute fracture or dislocation. Counseled pt/family regarding: lab results, diagnosis, need for follow-up, rad results - Departure Departure Disposition: Home Clinical Impression: Breakthrough seizure Condition: Stable Critical Care Time: No Referrals: DOCTOR,NO FAMILY [Primary Care Provider] - Follow up/PCP as directed Additional Instructions: Take all your medications as prescribed. Use Tylenol for pain control. Call your neurologist today to let them know that she had a breakthrough seizure.
[2021-08-19] MEDS: Ativan 2 MG/1 ML VIAL IV ONE (00:25)
[2021-08-19] MEDS ORDERED: Ativan 2 MG/1 ML VIAL ONE (00:25)
[2021-08-19 00:30] LABS: Absolute Neutrophil Ct (ANC) 4.58 x10^3/uL (1.4-6.9); Basophil (Absolute #) 0.06 x10^3/uL (0-0.4); Eosinophil % 4.9 % (0.00-5.0); Eosinophil (Absolute #) 0.46 x10^3/uL (0-0.5); Hemoglobin 14.7 g/dL (12.0-16.0); Lymphocyte (Absolute #) 3.73 x10^3/uL (1.0-4.6); Lymphocytes % 39.6 % (24.0-44.0); Mean Cell Volume 102.2 fL (78-100); Mean Corpuscular Hemoglobin 32.7 pg (26-32); Mean Platelet Volume 8.6 fL (7.5-11.0); Monocyte (Absolute #) 0.56 x10^3/uL (0.0-1.3); Monocytes % 5.9 % (0.0-12.0); Neutrophil % 48.6 % (36.0-66.0); Platelet Count 280 x10^3/uL (150-450); Red Cell Distribution Width 13.7 % (11.5-14.0); White Blood Count 9.4 x10^3/uL (4.0-10.5)
[2021-08-19 00:51] LABS: ALBUMIN 4.2 g/dL (3.5-5.0); ALKALINE PHOSPHATASE 65 U/L (38-126); ANION GAP 16.1 MEQ/L (5-15); BLOOD UREA NITROGEN 7 mg/dL (7-17); CHLORIDE 107 mmol/L (98-107); Calcium 8.8 mg/dL (8.4-10.2); Carbon Dioxide 23 mmol/L (22-30); Creatinine 1 0.54 mg/dL (0.52-1.04); EST GLOMERULAR FILTRATION RATE > 60.0 ML/MIN; Glucose 101 mg/dL (74-106); Potassium 4.6 mmol/L (3.5-5.1); SGOT/AST 39 U/L (14-36); SGPT/ALT 15 U/L (0-35); SODIUM 141 mmol/L (137-145); Total Protein 6.9 g/dL (6.3-8.2)
[2021-08-19] MEDS ORDERED: Zofran 4 MG/2 ML VIAL ONE (01:01)
[2021-08-19] MEDS: Zofran 4 MG/2 ML VIAL IV ONE (01:01)
[2021-08-19 01:14] LABS: Appearance CLEAR (CLEAR); Bacteria FEW /HPF (NEGATIVE); Bilirubin NEGATIVE (NEGATIVE); Epithelial Cells RARE /HPF (FEW); Glucose NEGATIVE (NEGATIVE); Ketones NEGATIVE (NEGATIVE); RBC NEGATIVE Ery/ul (0-5); Specific Gravity <=1.005 (1.005-1.025)
[2021-08-19 01:15] LABS: Dipstick done @ ? MAIN LAB; Nitrite NEGATIVE (NEGATIVE); Ph 5.5 (5-6); Protein,Urine Dip NEGATIVE (Negative); Urine Cultured Indicated? NO; Urobilinogen 0.2 mg/dL (0-1)
[2021-08-19 01:27] LABS: Amphetamine,Urine NEGATIVE (NEGATIVE); Barbiturate,Urine NEGATIVE (NEGATIVE); Benzodiazepine,Urine NEGATIVE (NEGATIVE); Cocaine,Urine NEGATIVE (NEGATIVE); Methadone,Urine NEGATIVE (NEGATIVE); Opiate,Urine NEGATIVE (NEGATIVE); PCP,Urine NEGATIVE (NEGATIVE); THC,Urine NEGATIVE (NEGATIVE)
[2021-08-19 03:19] VITALS: BP 103/62
[2021-08-19 03:46] VITALS: PULSE 84; O2SAT 95
--- NOTE | 2021-08-19 08:58 | XRAY ---
Indication: Pain. Seizure. Comparison: None 3 view left shoulder demonstrates mild AC degenerative arthropathy and minimal degenerative changes of visualized thoracic spine. No other bony, articular, or soft tissue abnormalities.
--- NOTE | 2021-08-19 09:00 | XRAY ---
Indication: Seizure. Headache. Multiple contiguous axial images obtained through the head without contrast. Comparison: None Normal appearing brain parenchyma, ventricles, and bony calvarium. Maxillary sinuses demonstrates moderate mucosal thickening right greater than left. Remaining paranasal sinuses and mastoid air cells are clear. Impression: Paranasal sinus disease. Remaining CT head without contrast exam is normal. Comment: Preliminary interpretation made by [facility]. No critical discrepancy.
== END 2021-08-19 03:46 | disposition home or self-care (01) ==
LOC: ED 23:59
DX: G40.89 Other seizures (principal); R51.9 Headache, unspecified; Z72.0 Tobacco use; Z79.891 Long term (current) use of opiate analgesic; Z79.899 Other long term (current) drug therapy
CPT/HCPCS: 36000; 36415; 70450; 73030; 80053; 80307; 81015; 85025; 94760; 96374; 99284; J2060; J2405

== ENCOUNTER 2022-03-03 09:53 | Day surgery (SDC) | payer MEDICARE ==
[2022-03-03] MEDS ORDERED: BUPIVACAINE 0.5% VIAL IJ ONE (09:54)
[2022-03-03] MEDS ORDERED: Depo-Medrol 40 MG/ML IM ONE (09:54)
[2022-03-03] MEDS ORDERED: DIPRIVAN 200 MG/20 ML IV ONE (11:58)
[2022-03-03] MEDS ORDERED: TORAdol 30 mg Injection ONE (12:09)
[2022-03-03] MEDS ORDERED: Lactated Ringers 1,000 ML IV ONE (13:03)
--- NOTE | 2022-03-03 19:49 | XRAY ---
Indication: Right SI joint injection. Intraoperative fluoroscopy provided for 11 seconds. 2 digital spot image submitted for interpretation demonstrates posterior needle tip projecting over the right SI joint. Correlate with intraoperative findings/report. Incidental partially visualized right hip arthroplasty.
--- NOTE | 2022-03-03 20:02 | XRAY ---
11 seconds of fluoroscopy was used in surgery for a right SI joint injection.
== END 2022-03-03 12:17 | disposition home or self-care (01) ==
LOC: SDC-PAIN 09:53
PROVIDERS: ATTEND Psychiatry & Neurology Pain Medicine
DX: M46.1 Sacroiliitis, not elsewhere classified (principal); Z79.899 Other long term (current) drug therapy
CPT/HCPCS: 01992; 27096; 72170; 77002; G0260; J1030; J1885; J2704